=== PATIENT | male | born 1960 | race Caucasian/White ===

== ENCOUNTER 2021-10-03 10:27 | Inpatient (IN) ==
--- NOTE | 2021-10-03 10:50 | XRay Report ---
XR chest 1V portable CLINICAL HISTORY: sob TECHNIQUE: Single frontal radiograph of the chest was obtained. Comparison: Comparison is made to chest one view 07/24/2012 FINDINGS: No lines and tubes are seen. The cardiomediastinal silhouette is normal. There is prominence and ceph alization of the vasculature with Alejandro B lines seen. No evidence of pleural effusion or pneumothora x. IMPRESSION: Moderate pulmonary edema. ACT 112: Negative or not required by law. Electronically signed by: Simba Red M.D. 10/03/2021 10:48 AM
[2021-10-03] MEDS ORDERED: DEXAMETHASONE SOD INJ 4 MG/ML VIAL IV STA (10:52)
[2021-10-03 11:17] LABS: Influenza A virus by PCR Negative (Neg); Influenza B virus by PCR Negative (Neg); RSV by PCR Negative (Neg); SARS CoV2 RNA(COVID-19) InHosp NEGATIVE (Negative)
[2021-10-03 11:29] LABS: Hematocrit (blood only) 43.1 % (42-52); Hemoglobin 14.2 g/dL (14.0-18.0); Mean Corpuscular Hemoglobin 31.5 pg (25-34); Mean Corpuscular Hgb Conc 32.9 g/dL (32-36); Mean Corpuscular Volume 95.6 fL (80-100); Mean Platelet Volume 9.7 fL (7.4-10.4); Platelet Count 308 K/uL (130-400); RDW Coefficient of Variation 12.9 % (11.5-14.5); RDW Standard Deviation 44.8 fL (36.4-46.3); Red Blood Count 4.51 M/uL (4.7-6.1); White Blood Count 10.31 K/uL (4.8-10.8)
[2021-10-03 11:35] LABS: Base Excess VBG 1.4 mEq/L; HCO3 VBG 26 mmol/L; PCO2 VBG 42 mmHg (38-50); PO2 VBG 26 mmHg; pH VBG 7.41 (7.36-7.41)
[2021-10-03 11:37] LABS: Oxygen Saturation VBG < 60.0 %
[2021-10-03 11:41] LABS: Partial Thromboplastin Ratio 1.2; Partial Thromboplastin Time 30.8 Seconds (21.0-31.0); Prothrombin Time 10.6 Seconds (9.0-12.0)
[2021-10-03 11:47] LABS: Alanine Aminotransferase 14 (12-78); Albumin Level 3.9 gm/dl (3.4-5.0); Aspartate Aminotransferase 13 U/L (15-37); BUN Creatinine Ratio 12.7 (10-20); Blood Urea Nitrogen 11 mg/dl (7-18); Calcium 9.1 mg/dl (8.5-10.1); Carbon Dioxide 25 mmol/L (21-32); Chloride 104 mmol/L (98-107); Est GFR (African American) 108.5 ml/min; Est GFR (Non-African American) 93.6 ml/min; Glucose 101 mg/dl (70-99); Magnesium 1.9 mg/dl (1.8-2.4); Potassium 3.9 mmol/L (3.5-5.1); Sodium 136 mmol/L (136-145)
[2021-10-03 11:50] LABS: Basophils # (auto) 0.04 K/uL (0-0.2); Basophils % (auto) 0.4 %; Immature Granulocytes # (auto) 0.01 K/uL (0.00-0.02); Immature Granulocytes % (auto) 0.1 %; Lymphocytes # (auto) 1.18 K/uL (1.2-3.4); Lymphocytes % (auto) 11.4 %; Monocytes # (auto) 1.43 K/uL (0.11-0.59); Monocytes % (auto) 13.9 %; Neutrophils # (auto) 7.65 K/uL (1.4-6.5); Neutrophils % (auto) 74.2 %
[2021-10-03 11:52] LABS: Albumin Globulin Ratio 0.9 (0.9-2); Alkaline Phosphatase 96 U/L (45-117); Bilirubin,Total 0.3 mg/dl (0.2-1); Globulin 4.3 gm/dl (2.5-4.0); Total Protein 8.2 gm/dl (6.4-8.2); Troponin I < 0.015 ng/ml (0-0.045)
[2021-10-03] MEDS ORDERED: OPTIRAY 320 125ml IV ONE (12:36)
[2021-10-03] MEDS ORDERED: FUROSEMIDE 40 MG/4 ML VIAL IV ONE (13:00)
--- NOTE | 2021-10-03 13:00 | CT Scan Report ---
CT angio chest PE protocol CLINICAL HISTORY: ro PE dyspnea, cough TECHNIQUE: Multidetector row helical CT of the chest was performed. Coronal and sagittal reformations were obtained. Coronal and sagittal MIPS were obtained from the axial data set and were submitted fo r review. Automated dose lowering techniques and/or adjustment according to patient size were utiliz ed for this exam. Comparison: None available at the time of this dictation. FINDINGS: Lungs and pleura: Tree in bud nodularity is seen most prominent in the right perihilar region. Heart and pericardium: Heart size is normal. No pericardial effusion. Vessels: No evidence of pulmonary embolism. Mediastinum and camelia: Subcentimeter lymph nodes are seen. Chest wall and lower neck: Unremarkable. Abdomen: A hepatic cyst is seen. Bones: Degenerative changes in the thoracic spine. IMPRESSION: 1. No evidence of pulmonary embolism. 2. Tree in bud nodularity most prominent in the right upper lobe may represent infectious/inflammato ry etiology. ACT 112: Negative or not required by law. Electronically signed by: Simba Red M.D. 10/03/2021 12:59 PM
[2021-10-03] MEDS ORDERED: AZITHROMYCIN 250 MG TAB PO ONE (13:10)
[2021-10-03] MEDS ORDERED: cefTRIAXone SODIUM 1,000 MG/50 ML BAG IV STA (13:10)
[2021-10-03 13:43] LABS: Appearance Urine Clear (Clear); Bacteria Urine Automated Negative (Negative); Bilirubin Urine Negative (Negative); Blood Urine Trace (Negative); Cast Urine Automated 0 /lpf (0-5); Color Urine Yellow; Epithelial Cell Urine Auto 0-5 /lpf (0-5); Glucose Urine UA Negative (Negative); Ketones Urine Negative (Negative); Leukocyte Esterase Urine Negative (Negative); Nitrite Urine Negative (Negative); Protein Urine Negative (Negative); RBC Urine Automated 0-4 /hpf (0-4); Specific Gravity Urine 1.038 (1.000-1.030); Urobilinogen Urine Negative (Negative); WBC Urine Automated 0 /hpf (0-5); pH Urine 5.5 (4.5-7.5)
--- NOTE | 2021-10-03 13:51 | Emergency Department Note ---
History of Present Illness General Chief Complaint: Shortness of Breath/Dyspnea Stated Complaint: trouble breathing Time Seen by Provider: 10/03/21 10:49 History of Present Illness Provider Complaint: shortness of breath Onset (ago): week(s) (1) Severity: moderate Consistency/Duration: + intermittent Maximum Pain Intensity: 6 Relieved By: + nothing Exacerbated By: + exertion and + coughing Context: + recent illness Associated symptoms: + cough, + sputum production and + chest congestion; no chest pain, no fever, no wheezing, no lower extremity pain, no paresthesias, no hemoptysis, no syncope, no abdominal pain or no lightheadedness HPI Narrative: Patient vaccinated against COVID-19. Related Data Home oxygen amount: none Home Medications Medication Instructions Recorded Confirmed Type amoxicillin 875 mg-potassium 1 tab PO DAILY 10/03/21 10/03/21 History clavulanate 125 mg tablet Allergies Allergy/AdvReac Type Severity Reaction Status Date / Time No Known Allergies Allergy Unknown NONE Verified 08/19/09 04:24 Past Med/Surg History Medical History No pertinent family history No pertinent past medical history Surgical History No pertinent past surgical history Social History Smoking Status: Current every day smoker Tobacco Type: Cigarettes Preferred Language: Sinhala Feels Safe at Home: Yes Review of Systems A total of 10 systems reviewed and were otherwise negative Physical Exam Vital Signs: Vital Signs - 24 hr 10/03/21 10:27 10/03/21 10:28 10/03/21 10:53 Temperature 37.4 C Temperature Source Temporal Artery Sc an Pulse Rate 113 H Pulse Rate from Sp O2 Sensor Respiratory Rate 22 20 Respiratory Effort / Characteristics Labored Blood Pressure 153/81 H Blood Pressure Mechelle n 105 Pulse Oximetry 89 L 96 Oxygen Delivery Me thod Nasal Cannula Room Air Nasal Cannula Oxygen Flow Rate 3 3 Sepsis Recent Feve r Within 48 Hours No Sepsis New/Unexpla ined Change in Men cezar Status No Sepsis Action Take n by Nursing No Action Required Pulse Oximetry Pos t Tiitration 98 10/03/21 10:58 10/03/21 11:00 10/03/21 11:10 Temperature Temperature Source Pulse Rate 103 H 102 H 94 H Pulse Rate from Sp O2 Sensor 101 H 105 H 93 H Respiratory Rate 22 25 H 28 H Respiratory Effort / Characteristics Blood Pressure 147/86 H 155/88 H Blood Pressure Mechelle n 106 110 Pulse Oximetry 93 93 93 Oxygen Delivery Me thod Oxygen Flow Rate Sepsis Recent Feve r Within 48 Hours Sepsis New/Unexpla ined Change in Men cezar Status Sepsis Action Take n by Nursing Pulse Oximetry Pos t Tiitration 10/03/21 11:20 10/03/21 11:30 10/03/21 11:40 Temperature Temperature Source Pulse Rate 109 H 103 H 108 H Pulse Rate from Sp O2 Sensor 110 H 103 H Respiratory Rate 27 H 28 H 24 Respiratory Effort / Characteristics Blood Pressure Blood Pressure Mechelle n Pulse Oximetry 92 94 Oxygen Delivery Me thod Oxygen Flow Rate Sepsis Recent Feve r Within 48 Hours Sepsis New/Unexpla ined Change in Men cezar Status Sepsis Action Take n by Nursing Pulse Oximetry Pos t Tiitration 10/03/21 11:50 10/03/21 12:00 10/03/21 12:10 Temperature Temperature Source Pulse Rate 103 H 96 H 99 H Pulse Rate from Sp O2 Sensor 100 H Respiratory Rate 23 28 H 29 H Respiratory Effort / Characteristics Blood Pressure Blood Pressure Mechelle n Pulse Oximetry 94 Oxygen Delivery Me thod Oxygen Flow Rate Sepsis Recent Feve r Within 48 Hours Sepsis New/Unexpla ined Change in Men cezar Status Sepsis Action Take n by Nursing Pulse Oximetry Pos t Tiitration 10/03/21 12:20 10/03/21 12:30 10/03/21 12:48 Temperature Temperature Source Pulse Rate 97 H 88 103 H Pulse Rate from Sp O2 Sensor 97 H 88 100 H Respiratory Rate 23 27 H 27 H Respiratory Effort / Characteristics Blood Pressure 137/84 Blood Pressure Mechelle n 101 Pulse Oximetry 94 94 91 Oxygen Delivery Me thod Oxygen Flow Rate Sepsis Recent Feve r Within 48 Hours Sepsis New/Unexpla ined Change in Men cezar Status Sepsis Action Take n by Nursing Pulse Oximetry Pos t Tiitration 10/03/21 12:50 10/03/21 13:00 Temperature Temperature Source Pulse Rate 100 H 96 H Pulse Rate from Sp O2 Sensor 99 H 96 H Respiratory Rate 28 H 27 H Respiratory Effort / Characteristics Blood Pressure 140/83 Blood Pressure Mechelle n 102 Pulse Oximetry 92 92 Oxygen Delivery Me thod Oxygen Flow Rate Sepsis Recent Feve r Within 48 Hours Sepsis New/Unexpla ined Change in Men cezar Status Sepsis Action Take n by Nursing Pulse Oximetry Pos t Tiitration Physical Exam: Physical Exam GENERAL: He is oriented to person, place, and time. He appears well-developed and well-nourished. He does not appear distressed. HENT: Exam performed. - Head: Normocephalic and atraumatic. - Right Ear: External ear normal. No mastoid tenderness. - Left Ear: External ear normal. No mastoid tenderness. - Mouth/Throat: The oropharynx is clear and moist. No trismus in the jaw. No dental abscesses or uvula swelling. No oropharyngeal exudate or tonsillar abscesses. EYES: Conjunctivae and EOM are normal. Pupils are equal, round, and reactive to light. Right eye exhibits no discharge. Left eye exhibits no discharge. No scleral icterus. NECK: Normal range of motion. Neck supple. No JVD present. No spinous process tenderness present. No carotid bruit present. No rigidity. No tracheal deviation and normal range of motion present. No Brudzinski's sign and no Kernig's sign noted. CV: Tachycardic rate, regular rhythm, normal heart sounds and intact distal pulses. There is no peripheral edema. Palpable radial pulses bue. PULM/CHEST: Rhonchi bilaterally. ABD: The abdomen is soft. Bowel sounds are normal. He has no distension. No mass is present. There is no tenderness. There is no rebound, no guarding, no Daniels's sign and no tenderness at McBurney's point. Rovsig negative. MUSC/SKEL: Normal range of motion. There is no peripheral edema, tenderness or deformity. LYMPH: No cervical adenopathy. NEURO: He is alert and oriented to person, place, and time. He has normal strength. No cranial nerve deficit or sensory deficit. Coordination and gait normal. GCS eye subscore is 4. GCS verbal subscore is 5. GCS motor subscore is 6. Cerebellar tests wnl. SKIN: Skin is warm and dry. He is not diaphoretic. PSYCH: He has a normal mood and affect. Behavior is normal. Judgment and thought content normal. Course Course 1049: The patient was evaluated in room B2. A complete history and physical exam was performed Cardiac monitoring: An order was placed for continuous cardiac monitoring. The monitor shows a rate of 105 with sinus tachycardia rhythm Patient was found to be hypoxic on room air. Supplemental oxygen was applied via nasal cannula which improved patient's oxygen saturation. 1345: Vital signs stable on supplemental oxygen. Labs are within normal limits. Covid is negative. Chest x-ray shows pulmonary edema, B-lines. For this beth son Lasix 40 mg IV push was ordered for the patient additionally. CTA was showed a possible infiltrate and thus the patient was treated for pneumonia with IV Rocephin and azithromycin. [facility] Administered Medications Discontinued Medications Azithromycin (Azithromycin 250 Mg Tab) 500 mg PO NOW ONE Stop: 10/03/21 13:11 Last Admin: 10/03/21 13:24 Dose: 500 mg Documented by: [id number] Dexamethasone (Dexamethasone Sod Inj 4 Mg/Ml Vial) 6 mg IV NOW STA Stop: 10/03/21 10:53 Last Admin: 10/03/21 12:06 Dose: 6 mg Documented by: [id number] Furosemide (Furosemide 40 Mg/4 Ml Vial) 40 mg IV ONE ONE Stop: 10/03/21 13:01 Last Admin: 10/03/21 13:08 Dose: 40 mg Documented by: [id number] Ceftriaxone Sodium (Rocephin) 1,000 mg in 50 mls @ 100 mls/hr IV NOW STA Stop: 10/03/21 13:39 Last Admin: 10/03/21 13:24 Dose: 100 mls/hr Documented by: [id number] Ioversol (Optiray 320 125ml) 119 ml IV ONCE ONE Stop: 10/03/21 12:37 Last Admin: 10/03/21 12:38 Dose: 119 ml Documented by: [id number] Medical Decision Making Laboratory Data Result diagrams: 10/03/21 11:20 10/03/21 11:20 Lab Results 10/03/21 10/03/21 10/03/21 Range/Units 10:33 11:20 11:20 WBC (4.8-10.8) K/uL RBC (4.7-6.1) M/uL Hgb (14.0-18.0) g/dL Hct (42-52) % MCV (80-100) fL MCH (25-34) pg MCHC (32-36) g/dL RDW Std Deviation (36.4-46.3) fL RDW Coeff of Alysa (11.5-14.5) % Plt Count (130-400) K/uL MPV (7.4-10.4) fL Immature Gran % (Auto) % Neut % (Auto) % Lymph % (Auto) % [place] % (Auto) % Eos % (Auto) % Baso % (Auto) % Neut # (Auto) (1.4-6.5) K/uL Lymph # (Auto) (1.2-3.4) K/uL [place] # (Auto) (0.11-0.59) K/uL Eos # (Auto) (0-0.5) K/uL Baso # (Auto) (0-0.2) K/uL Immature Gran # (Auto) (0.00-0.02) K/uL PT (9.0-12.0) Seconds INR (0.9-1.1) APTT (21.0-31.0) Seconds PTT Ratio VBG pH (7.36-7.41) VBG pCO2 (38-50) mmHg VBG pO2 mmHg VBG HCO3 mmol/L VBG O2 Saturation % VBG Base Excess mEq/L Barometric Pressure mm/Hg Sodium 136 (136-145) mmol/L Potassium 3.9 (3.5-5.1) mmol/L Chloride 104 (98-107) mmol/L Carbon Dioxide 25 (21-32) mmol/L Anion Gap 7.0 (3-11) BUN 11 (7-18) mg/dl Creatinine 0.89 (0.6-1.4) mg/dl Est Cr Clr Drug Dosing 83.0 ml/min Est GFR ( Amer) 108.5 ml/min Est GFR (Non-Af Amer) 93.6 ml/min BUN/Creatinine Ratio 12.7 (10-20) Glucose 101 H (70-99) mg/dl Lactate (0.4-2.0) mmol/L Calcium 9.1 (8.5-10.1) mg/dl Magnesium 1.9 (1.8-2.4) mg/dl Total Bilirubin 0.3 (0.2-1) mg/dl AST 13 L (15-37) U/L ALT 14 (12-78) Alkaline Phosphatase 96 (45-117) U/L Troponin I < 0.015 (0-0.045) ng/ml Total Protein 8.2 (6.4-8.2) gm/dl Albumin 3.9 (3.4-5.0) gm/dl Globulin 4.3 H (2.5-4.0) gm/dl Albumin/Globulin Ratio 0.9 (0.9-2) Procalcitonin 0.06 (0-0.5) ng/ml Urine Color Urine Appearance (Clear) Urine pH (4.5-7.5) Ur Specific [place] (1.000-1.030) Urine Protein (Negative) Urine Glucose (UA) (Negative) Urine Ketones (Negative) Urine Blood (Negative) Urine Nitrite (Negative) Urine Bilirubin (Negative) Urine Urobilinogen (Negative) Ur Leukocyte Esterase (Negative) Urine WBC (Auto) (0-5) /hpf Urine RBC (Auto) (0-4) /hpf U Hyaline Cast (Auto) (0-5) /lpf U Epithel Cells (Auto) (0-5) /lpf Urine Bacteria (Auto) (Negative) SARS-CoV-2 (PCR) NEGATIVE (Negative) Influenza Type A (PCR) Negative (Neg) Influenza Type B (PCR) Negative (Neg) RSV (RT-PCR) Negative (Neg) 10/03/21 10/03/21 10/03/21 Range/Units 11:20 11:20 11:20 WBC 10.31 (4.8-10.8) K/uL RBC 4.51 L (4.7-6.1) M/uL Hgb 14.2 (14.0-18.0) g/dL Hct 43.1 (42-52) % MCV 95.6 (80-100) fL MCH 31.5 (25-34) pg MCHC 32.9 (32-36) g/dL RDW Std Deviation 44.8 (36.4-46.3) fL RDW Coeff of Alysa 12.9 (11.5-14.5) % Plt Count 308 (130-400) K/uL MPV 9.7 (7.4-10.4) fL Immature Gran % (Auto) 0.1 % Neut % (Auto) 74.2 % Lymph % (Auto) 11.4 % [place] % (Auto) 13.9 % Eos % (Auto) 0.0 % Baso % (Auto) 0.4 % Neut # (Auto) 7.65 H (1.4-6.5) K/uL Lymph # (Auto) 1.18 L (1.2-3.4) K/uL [place] # (Auto) 1.43 H (0.11-0.59) K/uL Eos # (Auto) 0.00 (0-0.5) K/uL Baso # (Auto) 0.04 (0-0.2) K/uL Immature Gran # (Auto) 0.01 (0.00-0.02) K/uL PT 10.6 (9.0-12.0) Seconds INR 1.0 (0.9-1.1) APTT 30.8 (21.0-31.0) Seconds PTT Ratio 1.2 VBG pH 7.41 (7.36-7.41) VBG pCO2 42 (38-50) mmHg VBG pO2 26 mmHg VBG HCO3 26 mmol/L VBG O2 Saturation < 60.0 % VBG Base Excess 1.4 mEq/L Barometric Pressure 719.8 mm/Hg Sodium (136-145) mmol/L Potassium (3.5-5.1) mmol/L Chloride (98-107) mmol/L Carbon Dioxide (21-32) mmol/L Anion Gap (3-11) BUN (7-18) mg/dl Creatinine (0.6-1.4) mg/dl Est Cr Clr Drug Dosing ml/min Est GFR ( Amer) ml/min Est GFR (Non-Af Amer) ml/min BUN/Creatinine Ratio (10-20) Glucose (70-99) mg/dl Lactate (0.4-2.0) mmol/L Calcium (8.5-10.1) mg/dl Magnesium (1.8-2.4) mg/dl Total Bilirubin (0.2-1) mg/dl AST (15-37) U/L ALT (12-78) Alkaline Phosphatase (45-117) U/L Troponin I (0-0.045) ng/ml Total Protein (6.4-8.2) gm/dl Albumin (3.4-5.0) gm/dl Globulin (2.5-4.0) gm/dl Albumin/Globulin Ratio (0.9-2) Procalcitonin (0-0.5) ng/ml Urine Color Urine Appearance (Clear) Urine pH (4.5-7.5) Ur Specific [place] (1.000-1.030) Urine Protein (Negative) Urine Glucose (UA) (Negative) Urine Ketones (Negative) Urine Blood (Negative) Urine Nitrite (Negative) Urine Bilirubin (Negative) Urine Urobilinogen (Negative) Ur Leukocyte Esterase (Negative) Urine WBC (Auto) (0-5) /hpf Urine RBC (Auto) (0-4) /hpf U Hyaline Cast (Auto) (0-5) /lpf U Epithel Cells (Auto) (0-5) /lpf Urine Bacteria (Auto) (Negative) SARS-CoV-2 (PCR) (Negative) Influenza Type A (PCR) (Neg) Influenza Type B (PCR) (Neg) RSV (RT-PCR) (Neg) 10/03/21 10/03/21 Range/Units 11:20 Unknown WBC (4.8-10.8) K/uL RBC (4.7-6.1) M/uL Hgb (14.0-18.0) g/dL Hct (42-52) % MCV (80-100) fL MCH (25-34) pg MCHC (32-36) g/dL RDW Std Deviation (36.4-46.3) fL RDW Coeff of Alysa (11.5-14.5) % Plt Count (130-400) K/uL MPV (7.4-10.4) fL Immature Gran % (Auto) % Neut % (Auto) % Lymph % (Auto) % [place] % (Auto) % Eos % (Auto) % Baso % (Auto) % Neut # (Auto) (1.4-6.5) K/uL Lymph # (Auto) (1.2-3.4) K/uL [place] # (Auto) (0.11-0.59) K/uL Eos # (Auto) (0-0.5) K/uL Baso # (Auto) (0-0.2) K/uL Immature Gran # (Auto) (0.00-0.02) K/uL PT (9.0-12.0) Seconds INR (0.9-1.1) APTT (21.0-31.0) Seconds PTT Ratio VBG pH (7.36-7.41) VBG pCO2 (38-50) mmHg VBG pO2 mmHg VBG HCO3 mmol/L VBG O2 Saturation % VBG Base Excess mEq/L Barometric Pressure mm/Hg Sodium (136-145) mmol/L Potassium (3.5-5.1) mmol/L Chloride (98-107) mmol/L Carbon Dioxide (21-32) mmol/L Anion Gap (3-11) BUN (7-18) mg/dl Creatinine (0.6-1.4) mg/dl Est Cr Clr Drug Dosing ml/min Est GFR ( Amer) ml/min Est GFR (Non-Af Amer) ml/min BUN/Creatinine Ratio (10-20) Glucose (70-99) mg/dl Lactate 0.9 (0.4-2.0) mmol/L Calcium (8.5-10.1) mg/dl Magnesium (1.8-2.4) mg/dl Total Bilirubin (0.2-1) mg/dl AST (15-37) U/L ALT (12-78) Alkaline Phosphatase (45-117) U/L Troponin I (0-0.045) ng/ml Total Protein (6.4-8.2) gm/dl Albumin (3.4-5.0) gm/dl Globulin (2.5-4.0) gm/dl Albumin/Globulin Ratio (0.9-2) Procalcitonin (0-0.5) ng/ml Urine Color Yellow Urine Appearance Clear (Clear) Urine pH 5.5 (4.5-7.5) Ur Specific [place] 1.038 H (1.000-1.030) Urine Protein Negative (Negative) Urine Glucose (UA) Negative (Negative) Urine Ketones Negative (Negative) Urine Blood Trace H (Negative) Urine Nitrite Negative (Negative) Urine Bilirubin Negative (Negative) Urine Urobilinogen Negative (Negative) Ur Leukocyte Esterase Negative (Negative) Urine WBC (Auto) 0 (0-5) /hpf Urine RBC (Auto) 0-4 (0-4) /hpf U Hyaline Cast (Auto) 0 (0-5) /lpf U Epithel Cells (Auto) 0-5 (0-5) /lpf Urine Bacteria (Auto) Negative (Negative) SARS-CoV-2 (PCR) (Negative) Influenza Type A (PCR) (Neg) Influenza Type B (PCR) (Neg) RSV (RT-PCR) (Neg) Imaging Data Radiologist's Impression: Chest X-Ray 10/03/21 10:34 XR chest 1V portable CLINICAL HISTORY: sob TECHNIQUE: Single frontal radiograph of the chest was obtained. Comparison: Comparison is made to chest one view 07/24/2012 FINDINGS: No lines and tubes are seen. The cardiomediastinal silhouette is normal. There is prominence and cephalization of the vasculature with Alejandro B lines seen. No evidence of pleural effusion or pneumothorax. IMPRESSION: Moderate pulmonary edema. ACT 112: Negative or not required by law. Electronically signed by: Simba Red M.D. 10/03/2021 10:48 AM Chest CTA 10/03/21 10:52 CT angio chest PE protocol CLINICAL HISTORY: ro PE dyspnea, cough TECHNIQUE: Multidetector row helical CT of the chest was performed. Coronal and sagittal reformations were obtained. Coronal and sagittal MIPS were obtained from the axial data set and were submitted for review. Automated dose lowering techniques and/or adjustment according to patient size were utilized for this exam. Comparison: None available at the time of this dictation. FINDINGS: Lungs and pleura: Tree in bud nodularity is seen most prominent in the right perihilar region. Heart and pericardium: Heart size is normal. No pericardial effusion. Vessels: No evidence of pulmonary embolism. Mediastinum and camelia: Subcentimeter lymph nodes are seen. Chest wall and lower neck: Unremarkable. Abdomen: A hepatic cyst is seen. Bones: Degenerative changes in the thoracic spine. IMPRESSION: 1. No evidence of pulmonary embolism. 2. Tree in bud nodularity most prominent in the right upper lobe may represent infectious/inflammatory etiology. ACT 112: Negative or not required by law. Electronically signed by: Simba Red M.D. 10/03/2021 12:59 PM ECG Data Interpretation: Sinus tachycardia with rate of 103. MA QRS and QTc intervals are within normal limits. No salvation ST depression. There are peaked T waves in leads V2 V4. [facility] Narrative 1049: The patient was evaluated in room B2. A complete history and physical exam was performed Cardiac monitoring: An order was placed for continuous cardiac monitoring. The monitor shows a rate of 105 with sinus tachycardia rhythm Patient was found to be hypoxic on room air. Supplemental oxygen was applied via nasal cannula which improved patient's oxygen saturation. 1345: Vital signs stable on supplemental oxygen. Labs are within normal limits. Covid is negative. Chest x-ray shows pulmonary edema, B-lines. For this reason Lasix 40 mg IV push was ordered for the patient additionally. CTA was showed a possible infiltrate and thus the patient was treated for pneumonia with IV Rocephin and azithromycin. Patient be admitted to the [facility] team Dr. Benoit notified Impression & Plan Hypoxia, Community acquired pneumonia Critical Care Time Critical Care Time: Yes Total Critical Care Time: 59 I have personally spent greater than 59 minutes of critical care time in the direct management of this patient. This includes bedside care, interpretation of diagnostic studies, and testing, discussion with consultants, patient, and family members, and other required patient management activities. This 59 minutes is in excess of all separately billable procedures. Discharge Plan Visit Data Chief Complaint: Shortness of Breath/Dyspnea Stated Complaint: trouble breathing Discharge Problem: Hypoxia, Community acquired pneumonia Patient Disposition: Admitted As Inpatient Forms Stand Alone Forms: My [facility] Prescriptions Prescriptions: No Action amoxicillin-pot clavulanate 875-125 mg tablet 1 tab PO DAILY RF: 0 Referrals Referrals: Nina Mendez MD [Primary Care Provider] -
--- NOTE | 2021-10-03 15:05 | History & Physical Report ---
Date of Service October 03, 2021 Assessment & Plan (1) Acute respiratory failure with hypoxia: (2) Community acquired pneumonia: Plan: Patient reports history of recurrent sinusitis Most recently he was treated with Augmentin (started 5 days ago) Previously on Levaquin in August About 2 days ago, he developed more cough, chest tightness, and difficulty breathing in the ED found hypoxic, currently on 3 L of supplemental O2, satting 91% Chest x-ray showed some pulmonary edema and so he received Lasix in ED CTA negative for PE, however shows right upper lobe pneumonia Troponin negative Procalcitonin negative COVID-19 negative, influenza negative, RSV negative Blood culture pending proBNP normal In the ED received ceftriaxone and azithromycin, and dexamethasone We will continue with ceftriaxone and doxycycline Add guaifenesin, flutter valve Obtain sputum culture Continue to closely monitor Patient also may have underlying COPD, as he has significant smoking history We will provide nicotine patch Hypertension Patient takes atenolol 12.5 mg daily Hyperlipidemia History of elevated LDL, managed by diet DVT prophylaxis Lovenox CODE STATUS full History of Present Illness Chief Complaint: Shortness of breath Primary Care Provider: Nina Mendez MD 61-year-old male, with history of recurrent sinusitis, hyperlipidemia, hypertension, who presents with increased cough, difficulty breathing, and found hypoxic in the ED. Patient was seen by his primary care provider about a week ago, at that time he was prescribed Augmentin for his recurrent sinusitis. Patient reports having issues with sinuses for several years, previously he was treated in July and August with antibiotics as well, per records he was on Levaquin in August. Says he had significant nasal drainage, green-colored, and therefore was seen by his PCP on Tuesday. He thought he was getting better on Augmentin however yesterday he developed a lot of chest tightness, more cough and sputum production with cough. Denies significant fevers or chills. Also denies abdominal pain nausea or vomiting. He has chronic headache, for which he takes Excedrin. For hypertension he takes 12.5 mg of atenolol daily. Works as a garage construction equipment mechanic, and says that he is very active. He is also a daily smoker, about a pack a day, for past 35 years. Says he smoked last time yesterday. In the ED he was found hypoxic, and currently is on 3 L of nasal cannula, satting 91%. He is able to talk in full sentences, and reports that he is feeling better now. In the ED he received ceftriaxone, azithromycin, dexamethasone, and also IV Lasix as chest x-ray suggested some pulmonary edema. CTA negative for PE, however concerning for right upper lobe pneumonia. Allergies Allergy/AdvReac Type Severity Reaction Status Date / Time No Known Allergies Allergy Unknown NONE Verified 08/19/09 04:24 Home Medications Medication Instructions Recorded Confirmed Type amoxicillin 875 mg-potassium 1 tab PO DAILY 10/03/21 10/03/21 History clavulanate 125 mg tablet Past Med/Surg History Medical History (Updated 10/03/21 @ 16:13 by Fabian Benoit MD) Hyperlipidemia Hypertension No pertinent family history Surgical History (Updated 10/03/21 @ 16:13 by Fabian Benoit MD) Hx of appendectomy Hx of hernia repair Social History Smoking Status: Current every day smoker Tobacco Type: Cigarettes Preferred Language: Georgian Feels Safe at Home: Yes Review of Systems Constitutional: no fever and no chills Eyes: no problem reported Ear, Nose, Mouth, Throat: + nasal discharge Respiratory: + cough, + chest congestion, + change in sputum and + dyspnea Cardiovascular: no chest pain Gastrointestinal: + nausea; no abdominal pain and no vomiting Genitourinary: no problem reported Musculoskeletal: no problem reported Integumentary: no problem reported Neurologic: no problem reported Psychiatric: no problem reported Endocrine: no problem reported Hematologic / Lymphatic: no problem reported Allergy / Immunological: no problem reported Physical Exam Constitutional: WD/WN, vitals as above Eyes: PERRL, conjunctivae normal, anicteric sclerae ENMT: external ear and nose normal, oropharynx normal Neck: trachea midline, no thyromegaly Respiratory: normal respiratory effort and + cough Auscultation: + crackles (minimal) and + rhonchi (diffuse); no wheezes Cardiovascular: Rate/Rhythm: + tachycardic (low 100s) Heart Sounds: no mur mur Extremities: no edema Chest (Breasts): Chest: normal inspection of chest Gastrointestinal (Abdomen): normal bowel sounds, soft, nontender, no hepatosplenomegaly Musculoskeletal: no cyanosis or clubbing, extremities motor strength 5/5 Head/Neck/Chest: normocephalic, head atraumatic and neck supple Skin: no rashes, warm and dry Neurologic: PERRL, EOMI, accommodation nl, no face palsy, no dysarthria Psychiatric: A+Ox3, euthymic affect Genitourinary: no CVA tenderness Lymphatic: no lymphedema Results & Data Results & [facility]) Vital Signs (Past 12 Hours) Vital Signs Temp Pulse Resp BP Pulse Ox 10/03/21 13:00 96 H 27 H 140/83 92 10/03/21 12:50 100 H 28 H 92 10/03/21 12:48 103 H 27 H 91 10/03/21 12:30 88 27 H 137/84 94 10/03/21 12:20 97 H 23 94 10/03/21 12:10 99 H 29 H 94 10/03/21 12:00 96 H 28 H 10/03/21 11:50 103 H 23 10/03/21 11:40 108 H 24 10/03/21 11:30 103 H 28 H 94 10/03/21 11:20 109 H 27 H 92 10/03/21 11:10 94 H 28 H 93 10/03/21 11:00 102 H 25 H 155/88 H 93 10/03/21 10:58 103 H 22 147/86 H 93 10/03/21 10:53 20 96 10/03/21 10:28 37.4 C 113 H 22 153/81 H 89 L Laboratory Results 10/03/21 10/03/21 10/03/21 Range/Units Unknown 11:20 11:20 WBC (4.8-10.8) K/uL RBC (4.7-6.1) M/uL Hgb (14.0-18.0) g/dL Hct (42-52) % MCV (80-100) fL MCH (25-34) pg MCHC (32-36) g/dL RDW Std Deviation (36.4-46.3) fL RDW Coeff of Alysa (11.5-14.5) % Plt Count (130-400) K/uL MPV (7.4-10.4) fL Immature Gran % (Auto) % Neut % (Auto) % Lymph % (Auto) % [place] % (Auto) % Eos % (Auto) % Baso % (Auto) % Neut # (Auto) (1.4-6.5) K/uL Lymph # (Auto) (1.2-3.4) K/uL [place] # (Auto) (0.11-0.59) K/uL Eos # (Auto) (0-0.5) K/uL Baso # (Auto) (0-0.2) K/uL Immature Gran # (Auto) (0.00-0.02) K/uL PT (9.0-12.0) Seconds INR (0.9-1.1) APTT (21.0-31.0) Seconds PTT Ratio VBG pH (7.36-7.41) VBG pCO2 (38-50) mmHg VBG pO2 mmHg VBG HCO3 mmol/L VBG O2 Saturation % VBG Base Excess mEq/L Barometric Pressure mm/Hg Sodium (136-145) mmol/L Potassium (3.5-5.1) mmol/L Chloride (98-107) mmol/L Carbon Dioxide (21-32) mmol/L Anion Gap (3-11) BUN (7-18) mg/dl Creatinine (0.6-1.4) mg/dl Est Cr Clr Drug Dosing ml/min Est GFR ( Amer) ml/min Est GFR (Non-Af Amer) ml/min BUN/Creatinine Ratio (10-20) Glucose (70-99) mg/dl Lactate 0.9 (0.4-2.0) mmol/L Calcium (8.5-10.1) mg/dl Magnesium (1.8-2.4) mg/dl Total Bilirubin (0.2-1) mg/dl AST (15-37) U/L ALT (12-78) Alkaline Phosphatase (45-117) U/L Troponin I (0-0.045) ng/ml NT-Pro-B Natriuret Pep 101 (0-900) pg/ml Total Protein (6.4-8.2) gm/dl Albumin (3.4-5.0) gm/dl Globulin (2.5-4.0) gm/dl Albumin/Globulin Ratio (0.9-2) Procalcitonin (0-0.5) ng/ml Urine Color Yellow Urine Appearance Clear (Clear) Urine pH 5.5 (4.5-7.5) Ur Specific Reynolds 1.038 H (1.000-1.030) Urine Protein Negative (Negative) Urine Glucose (UA) Negative (Negative) Urine Ketones Negative (Negative) Urine Blood Trace H (Negative) Urine Nitrite Negative (Negative) Urine Bilirubin Negative (Negative) Urine Urobilinogen Negative (Negative) Ur Leukocyte Esterase Negative (Negative) Urine WBC (Auto) 0 (0-5) /hpf Urine RBC (Auto) 0-4 (0-4) /hpf U Hyaline Cast (Auto) 0 (0-5) /lpf U Epithel Cells (Auto) 0-5 (0-5) /lpf Urine Bacteria (Auto) Negative (Negative) SARS-CoV-2 (PCR) (Negative) Influenza Type A (PCR) (Neg) Influenza Type B (PCR) (Neg) RSV (RT-PCR) (Neg) 10/03/21 10/03/21 10/03/21 Range/Units 11:20 11:20 11:20 WBC 10.31 (4.8-10.8) K/uL RBC 4.51 L (4.7-6.1) M/uL Hgb 14.2 (14.0-18.0) g/dL Hct 43.1 (42-52) % MCV 95.6 (80-100) fL MCH 31.5 (25-34) pg MCHC 32.9 (32-36) g/dL RDW Std Deviation 44.8 (36.4-46.3) fL RDW Coeff of Alysa 12.9 (11.5-14.5) % Plt Count 308 (130-400) K/uL MPV 9.7 (7.4-10.4) fL Immature Gran % (Auto) 0.1 % Neut % (Auto) 74.2 % Lymph % (Auto) 11.4 % [place] % (Auto) 13.9 % Eos % (Auto) 0.0 % Baso % (Auto) 0.4 % Neut # (Auto) 7.65 H (1.4-6.5) K/uL Lymph # (Auto) 1.18 L (1.2-3.4) K/uL [place] # (Auto) 1.43 H (0.11-0.59) K/uL Eos # (Auto) 0.00 (0-0.5) K/uL Baso # (Auto) 0.04 (0-0.2) K/uL Immature Gran # (Auto) 0.01 (0.00-0.02) K/uL PT 10.6 (9.0-12.0) Seconds INR 1.0 (0.9-1.1) APTT 30.8 (21.0-31.0) Seconds PTT Ratio 1.2 VBG pH 7.41 (7.36-7.41) VBG pCO2 42 (38-50) mmHg VBG pO2 26 mmHg VBG HCO3 26 mmol/L VBG O2 Saturation < 60.0 % VBG Base Excess 1.4 mEq/L Barometric Pressure 719.8 mm/Hg Sodium (136-145) mmol/L Potassium (3.5-5.1) mmol/L Chloride (98-107) mmol/L Carbon Dioxide (21-32) mmol/L Anion Gap (3-11) BUN (7-18) mg/dl Creatinine (0.6-1.4) mg/dl Est Cr Clr Drug Dosing ml/min Est GFR ( Amer) ml/min Est GFR (Non-Af Amer) ml/min BUN/Creatinine Ratio (10-20) Glucose (70-99) mg/dl Lactate (0.4-2.0) mmol/L Calcium (8.5-10.1) mg/dl Magnesium (1.8-2.4) mg/dl Total Bilirubin (0.2-1) mg/dl AST (15-37) U/L ALT (12-78) Alkaline Phosphatase (45-117) U/L Troponin I (0-0.045) ng/ml NT-Pro-B Natriuret Pep (0-900) pg/ml Total Protein (6.4-8.2) gm/dl Albumin (3.4-5.0) gm/dl Globulin (2.5-4.0) gm/dl Albumin/Globulin Ratio (0.9-2) Procalcitonin (0-0.5) ng/ml Urine Color Urine Appearance (Clear) Urine pH (4.5-7.5) Ur Specific Reynolds (1.000-1.030) Urine Protein (Negative) Urine Glucose (UA) (Negative) Urine Ketones (Negative) Urine Blood (Negative) Urine Nitrite (Negative) Urine Bilirubin (Negative) Urine Urobilinogen (Negative) Ur Leukocyte Esterase (Negative) Urine WBC (Auto) (0-5) /hpf Urine RBC (Auto) (0-4) /hpf U Hyaline Cast (Auto) (0-5) /lpf U Epithel Cells (Auto) (0-5) /lpf Urine Bacteria (Auto) (Negative) SARS-CoV-2 (PCR) (Negative) Influenza Type A (PCR) (Neg) Influenza Type B (PCR) (Neg) RSV (RT-PCR) (Neg) 10/03/21 10/03/21 10/03/21 Range/Units 11:20 11:20 10:33 WBC (4.8-10.8) K/uL RBC (4.7-6.1) M/uL Hgb (14.0-18.0) g/dL Hct (42-52) % MCV (80-100) fL MCH (25-34) pg MCHC (32-36) g/dL RDW Std Deviation (36.4-46.3) fL RDW Coeff of Alysa (11.5-14.5) % Plt Count (130-400) K/uL MPV (7.4-10.4) fL Immature Gran % (Auto) % Neut % (Auto) % Lymph % (Auto) % [place] % (Auto) % Eos % (Auto) % Baso % (Auto) % Neut # (Auto) (1.4-6.5) K/uL Lymph # (Auto) (1.2-3.4) K/uL [place] # (Auto) (0.11-0.59) K/uL Eos # (Auto) (0-0.5) K/uL Baso # (Auto) (0-0.2) K/uL Immature Gran # (Auto) (0.00-0.02) K/uL PT (9.0-12.0) Seconds INR (0.9-1.1) APTT (21.0-31.0) Seconds PTT Ratio VBG pH (7.36-7.41) VBG pCO2 (38-50) mmHg VBG pO2 mmHg VBG HCO3 mmol/L VBG O2 Saturation % VBG Base Excess mEq/L Barometric Pressure mm/Hg Sodium 136 (136-145) mmol/L Potassium 3.9 (3.5-5.1) mmol/L Chloride 104 (98-107) mmol/L Carbon Dioxide 25 (21-32) mmol/L Anion Gap 7.0 (3-11) BUN 11 (7-18) mg/dl Creatinine 0.89 (0.6-1.4) mg/dl Est Cr Clr Drug Dosing 83.0 ml/min Est GFR ( Amer) 108.5 ml/min Est GFR (Non-Af Amer) 93.6 ml/min BUN/Creatinine Ratio 12.7 (10-20) Glucose 101 H (70-99) mg/dl Lactate (0.4-2.0) mmol/L Calcium 9.1 (8.5-10.1) mg/dl Magnesium 1.9 (1.8-2.4) mg/dl Total Bilirubin 0.3 (0.2-1) mg/dl AST 13 L (15-37) U/L ALT 14 (12-78) Alkaline Phosphatase 96 (45-117) U/L Troponin I < 0.015 (0-0.045) ng/ml NT-Pro-B Natriuret Pep (0-900) pg/ml Total Protein 8.2 (6.4-8.2) gm/dl Albumin 3.9 (3.4-5.0) gm/dl Globulin 4.3 H (2.5-4.0) gm/dl Albumin/Globulin Ratio 0.9 (0.9-2) Procalcitonin 0.06 (0-0.5) ng/ml Urine Color Urine Appearance (Clear) Urine pH (4.5-7.5) Ur Specific [place] (1.000-1.030) Urine Protein (Negative) Urine Glucose (UA) (Negative) Urine Ketones (Negative) Urine Blood (Negative) Urine Nitrite (Negative) Urine Bilirubin (Negative) Urine Urobilinogen (Negative) Ur Leukocyte Esterase (Negative) Urine WBC (Auto) (0-5) /hpf Urine RBC (Auto) (0-4) /hpf U Hyaline Cast (Auto) (0-5) /lpf U Epithel Cells (Auto) (0-5) /lpf Urine Bacteria (Auto) (Negative) SARS-CoV-2 (PCR) NEGATIVE (Negative) Influenza Type A (PCR) Negative (Neg) Influenza Type B (PCR) Negative (Neg) RSV (RT-PCR) Negative (Neg) Diagnostic Findings CTA IMPRESSION: 1. No evidence of pulmonary embolism. 2. Tree in bud nodularity most prominent in the right upper lobe may represent infectious/inflammatory etiology. CXR IMPRESSION: Moderate pulmonary edema. Code Status & VTE Plan VTE Prophylaxis Plan VTE Prophylaxis will be ordered: Yes (1) Community acquired pneumonia Laterality: right Lung location: upper lobe of lung Qualified Code(s): J18.9 - Pneumonia, unspecified organism
[2021-10-03] MEDS ORDERED: guaiFENesin 600 MG TABCR PO SCH (15:20)
[2021-10-03] MEDS ORDERED: ATENOLOL 25 MG TABLET PO ONE (16:00)
[2021-10-03] MEDS ORDERED: SODIUM CHLORIDE 0.65% NA SOLN 45 ML (OCEAN) ONE (16:15)
[2021-10-03] MEDS ORDERED: NICOTINE 7 MG/24 HR TDSY TD ONE (16:15)
[2021-10-03] MEDS: DOXYCYCLINE HYCLATE 100 MG in DEXTROSE 5% 100 ML IV SCH (17:16)
[2021-10-03] MEDS: ACETAMINOPHEN 325 MG TAB PO PRN (21:37)
[2021-10-03] MEDS: SODIUM CHLORIDE 0.65% NA SOLN 45 ML (OCEAN) SCH (21:37)
[2021-10-03] MEDS: guaiFENesin 600 MG TABCR PO SCH (21:38)
[2021-10-03] MEDS: ENOXAPARIN INJ 40 MG/0.4 ML SYR SQ SCH (21:38)
[2021-10-04] MEDS: ACETAMINOPHEN 325 MG TAB PO PRN ×2 (01:46→21:02)
[2021-10-04] MEDS ORDERED: KETOROLAC 30 MG/ML VIAL IV ONE (03:32)
[2021-10-04] MEDS: DOXYCYCLINE HYCLATE 100 MG in DEXTROSE 5% 100 ML IV SCH ×2 (06:03→18:03)
[2021-10-04] MEDS: ATENOLOL 25 MG TABLET PO SCH (08:10)
[2021-10-04] MEDS: NICOTINE 7 MG/24 HR TDSY TD SCH (08:11)
[2021-10-04] MEDS: guaiFENesin 600 MG TABCR PO SCH ×2 (08:12→20:59)
[2021-10-04] MEDS: SODIUM CHLORIDE 0.65% NA SOLN 45 ML (OCEAN) SCH ×2 (08:13→21:04)
[2021-10-04] MEDS ORDERED: KETOROLAC TROMETHAMINE 15 MG/ML VIAL IV ONE (08:19)
--- NOTE | 2021-10-04 08:21 | Hospitalist Progress Note ---
Date of Service October 04, 2021 Assessment & Plan (1) Acute respiratory failure with hypoxia: (2) Community acquired pneumonia: Plan: Patient reports history of recurrent sinusitis Most recently he was treated with Augmentin (started 5 days ago) Previously on Levaquin in August About 2 days ago, he developed more cough, chest tightness, and difficulty breathing in the ED found hypoxic, currently on 3 L of supplemental O2, satting 91% Chest x-ray showed some pulmonary edema and so he received Lasix in ED CTA negative for PE, however shows right upper lobe pneumonia Troponin negative Procalcitonin negative COVID-19 negative, influenza negative, RSV negative Blood culture pending proBNP normal In the ED received ceftriaxone and azithromycin, and dexamethasone We will continue with ceftriaxone and doxycycline Added guaifenesin, flutter valve Obtained sputum culture - pending results Continue to closely monitor Patient also may have underlying COPD, as he has significant smoking history We will provide nicotine patch 10/04 -patient currently on 2 L of nasal cannula, satting 93% Repeat chest x-ray this morning, shows resolution of pulmonary edema creatinine slightly up, 1.4 this morning, Likely secondary to receiving Lasix and Toradol in the ED yesterday -we will continue to closely monitor Will provide very gentle hydration Hypertension Patient takes atenolol 12.5 mg daily, will continue BP well controlled now Hyperlipidemia History of elevated LDL, managed by diet DVT prophylaxis Lovenox CODE STATUS full Admission and Anticipated Discharge Date Admission Date: October 03, 2021 Subjective Patient seen in follow-up of hypoxia, pneumonia Currently sitting up in bed, no acute distress Says he does not have much appetite, is eating Jell-O No fevers, chills, chest pain, increased shortness of breath, says that cough is little better He does complain of headache, says he has headaches almost all the time, takes Excedrin at home He is using flutter valve on his own Sputum culture pending Review of Systems Review of Systems: All systems reviewed & are unremarkable except as noted in Subjective Physical Exam Physical Exam: Constitutional:L WD/WN, vitals as a jay Eyes: PERRL, EOMI, thomas l, anicteric scler ae ENMT: external ear and n ose normal, oropha rynx normal Neck: supple Respiratory: normal respiratory effort and + coug h Auscultation: + crackles (minimal ) and + rhonchi (d iffuse); no wheeze s Cardiovascular:L Rate/Rhythm:RRR He art Sounds: no mur mur Extremities: no edema Chest (Breasts): Chest: normal insp ection of chest Gastrointestinal ( Abdomen): normal bowel sound s, soft, nontender Musculoskeletal: no cyanosis or clu bbing, extremities motor strength 5/ 5 Head/Neck/Chest : normocephalic, h ead atraumatic and neck supple Skin: no rashes, warm an d dry Neurologic: PERRL, EOMI, no fa ce palsy, no dysar thria, moves extre mities Psychiatric: A+Ox3, euthymic af fect Genitourinary: no CVA tenderness Lymphatic: no lymphedema Results & Data Results & Data ([facility]) Vital Signs (Past 12 Hours) Vital Signs Temp Pulse Pulse Resp BP BP Pulse Ox 10/04/21 07:35 36.7 C 19 140/72 91 10/04/21 04:40 36.7 C 79 18 125/78 93 10/04/21 01:54 36.6 C 74 20 136/83 93 10/04/21 01:51 79 10/04/21 00:45 78 18 137/82 91 10/03/21 23:47 10/03/21 23:46 77 18 124/81 92 10/03/21 23:18 37.0 C 90 21 99/59 L 93 10/03/21 23:00 76 18 124/81 92 10/03/21 22:30 77 20 109/64 94 10/03/21 22:00 74 21 131/68 93 10/03/21 21:40 89 13 92 10/03/21 21:30 91 H 21 118/77 92 10/03/21 21:20 76 21 92 10/03/21 21:10 77 22 92 10/03/21 21:00 84 21 116/69 93 10/03/21 20:50 76 21 93 10/03/21 20:40 77 21 93 10/03/21 20:30 89 19 130/84 94 10/03/21 20:20 93 H 15 92 Pulse Ox 10/04/21 07:35 10/04/21 04:40 10/04/21 01:54 10/04/21 01:51 10/04/21 00:45 10/03/21 23:47 92 10/03/21 23:46 10/03/21 23:18 10/03/21 23:00 10/03/21 22:30 10/03/21 22:00 10/03/21 21:40 10/03/21 21:30 10/03/21 21:20 10/03/21 21:10 10/03/21 21:00 10/03/21 20:50 10/03/21 20:40 10/03/21 20:30 10/03/21 20:20 Laboratory Results 10/04/21 10/04/21 10/03/21 Range/Units 12:16 12:16 Unknown WBC 8.37 (4.8-10.8) K/uL RBC 4.45 L (4.7-6.1) M/uL Hgb 14.0 (14.0-18.0) g/dL Hct 41.6 L (42-52) % MCV 93.5 (80-100) fL MCH 31.5 (25-34) pg MCHC 33.7 (32-36) g/dL RDW Std Deviation 44.0 (36.4-46.3) fL RDW Coeff of Alysa 12.9 (11.5-14.5) % Plt Count 328 (130-400) K/uL MPV 9.9 (7.4-10.4) fL Sodium 132 L (136-145) mmol/L Potassium 3.4 L (3.5-5.1) mmol/L Chloride 97 L (98-107) mmol/L Carbon Dioxide 25 (21-32) mmol/L Anion Gap 10.0 (3-11) BUN 31 H D (7-18) mg/dl Creatinine 1.36 D (0.6-1.4) mg/dl Est Cr Clr Drug Dosing 52.3 ml/min Est GFR ( Amer) 65.5 ml/min Est GFR (Non-Af Amer) 56.6 ml/min BUN/Creatinine Ratio 23.0 H (10-20) Glucose 137 H (70-99) mg/dl Calcium 8.7 (8.5-10.1) mg/dl Phosphorus 3.9 D (2.5-4.9) mg/dl Magnesium 2.0 (1.8-2.4) mg/dl NT-Pro-B Natriuret Pep (0-900) pg/ml Urine Color Yellow Urine Appearance Clear (Clear) Urine pH 5.5 (4.5-7.5) Ur Specific Carrie 1.038 H (1.000-1.030) Urine Protein Negative (Negative) Urine Glucose (UA) Negative (Negative) Urine Ketones Negative (Negative) Urine Blood Trace H (Negative) Urine Nitrite Negative (Negative) Urine Bilirubin Negative (Negative) Urine Urobilinogen Negative (Negative) Ur Leukocyte Esterase Negative (Negative) Urine WBC (Auto) 0 (0-5) /hpf Urine RBC (Auto) 0-4 (0-4) /hpf U Hyaline Cast (Auto) 0 (0-5) /lpf U Epithel Cells (Auto) 0-5 (0-5) /lpf Urine Bacteria (Auto) Negative (Negative) 10/03/21 10/03/21 Range/Units 11:20 11:20 WBC (4.8-10.8) K/uL RBC (4.7-6.1) M/uL Hgb (14.0-18.0) g/dL Hct (42-52) % MCV (80-100) fL MCH (25-34) pg MCHC (32-36) g/dL RDW Std Deviation (36.4-46.3) fL RDW Coeff of Alysa (11.5-14.5) % Plt Count (130-400) K/uL MPV (7.4-10.4) fL Sodium (136-145) mmol/L Potassium (3.5-5.1) mmol/L Chloride (98-107) mmol/L Carbon Dioxide (21-32) mmol/L Anion Gap (3-11) BUN (7-18) mg/dl Creatinine (0.6-1.4) mg/dl Est Cr Clr Drug Dosing ml/min Est GFR ( Amer) ml/min Est GFR (Non-Af Amer) ml/min BUN/Creatinine Ratio (10-20) Glucose (70-99) mg/dl Calcium (8.5-10.1) mg/dl Phosphorus 2.8 (2.5-4.9) mg/dl Magnesium (1.8-2.4) mg/dl NT-Pro-B Natriuret Pep 101 (0-900) pg/ml Urine Color Urine Appearance (Clear) Urine pH (4.5-7.5) Ur Specific Carrie (1.000-1.030) Urine Protein (Negative) Urine Glucose (UA) (Negative) Urine Ketones (Negative) Urine Blood (Negative) Urine Nitrite (Negative) Urine Bilirubin (Negative) Urine Urobilinogen (Negative) Ur Leukocyte Esterase (Negative) Urine WBC (Auto) (0-5) /hpf Urine RBC (Auto) (0-4) /hpf U Hyaline Cast (Auto) (0-5) /lpf U Epithel Cells (Auto) (0-5) /lpf Urine Bacteria (Auto) (Negative) Medications Administered Current Inpatient Medications Acetaminophen (Acetaminophen 325 Mg Tab) 650 mg PO PRN PRN PRN Reason: pain or fever Stop: 11/02/21 15:55 Last Admin: 10/04/21 01:46 Dose: 650 mg Documented by: Atenolol (Atenolol 25 Mg Tablet) 12.5 mg PO QAM [facility] Stop: 11/03/21 08:59 Last Admin: 10/04/21 08:10 Dose: 12.5 mg Documented by: Enoxaparin Sodium (Enoxaparin Inj 40 Mg/0.4 Ml Syr) 40 mg SQ Q24H [facility] Stop: 11/02/21 20:59 Last Admin: 10/03/21 21:38 Dose: 40 mg Documented by: Guaifenesin (Guaifenesin 600 Mg Tabcr) 600 mg PO Q12 [facility] Stop: 11/02/21 20:59 Last Admin: 10/04/21 08:12 Dose: 600 mg Documented by: Doxycycline Hyclate 100 mg/ (Dextrose) 110 mls @ 50 mls/hr IV Q12H [facility] Stop: 10/10/21 17:59 Last Infusion: 10/04/21 08:13 Dose: Infused Documented by: Ceftriaxone Sodium 1,000 mg/ (Dextrose) 50 mls @ 100 mls/hr IV Q24H [facility]; Protocol Stop: 10/10/21 13:29 Ketorolac Tromethamine (Ketorolac Tromethamine 15 Mg/Ml Vial) 15 mg IV NOW ONE Stop: 10/04/21 08:20 Miscellaneous (Remove Nicoderm Patch) 1 ea N/A DAILY@[id number] [facility] Stop: 11/03/21 08:58 Last Admin: 10/04/21 08:13 Dose: 1 ea Documented by: Nicotine (Nicotine 7 Mg/24 Hr Tdsy) 7 mg TD QAM [facility] Stop: 11/03/21 08:59 Last Admin: 10/04/21 08:11 Dose: 7 mg Documented by: Sodium Chloride (Sodium Chloride 0.65% Na Soln 45 Ml ([place])) 1 sprays NA BID [facility] Stop: 11/02/21 20:59 Last Admin: 10/04/21 08:13 Dose: 1 sprays Documented by: (1) Community acquired pneumonia Laterality: right Lung location: upper lobe of lung Qualified Code(s): J18.9 - Pneumonia, unspecified organism
--- NOTE | 2021-10-04 08:34 | XRay Report ---
XR chest 1V portable CLINICAL HISTORY: follow up TECHNIQUE: Single frontal radiograph of the chest was obtained. Comparison: Comparison is made to chest one view 10/03/2021 FINDINGS: No lines and tubes are seen. The cardiomediastinal silhouette is normal. Interval resolution of previ ously noted pulmonary edema. The lungs are clear. No evidence of pleural effusion or pneumothorax. IMPRESSION: No acute chest disease. In particular, previously noted pulmonary edema has resolved. ACT 112: Negative or not required by law. Electronically signed by: Simba Red M.D. 10/04/2021 8:33 AM
--- NOTE | 2021-10-04 11:39 | Electrocardiogram Report ---
Test Reason : Blood Pressure : / mmHG Vent. Rate : 103 BPM Atrial Rate : 103 BPM P-R Int : 150 ms QRS Dur : 094 ms QT Int : 342 ms P-R-T Axes : 080 -48 051 degrees QTc Int : 448 ms Sinus tachycardia Left axis deviation Abnormal ECG When compared with ECG of 24-JUL-2012 07:05, QRS axis Shifted left Confirmed by Sage Llanes ([id number]) on 10/04/2021 11:38:48 AM Referred By: REFERRED SELF Confirmed By:Sage Llanes
[2021-10-04] MEDS ORDERED: IBUPROFEN 200 MG TAB PO PRN (12:01)
[2021-10-04 12:26] LABS: Hematocrit (blood only) 41.6 % (42-52); Mean Corpuscular Hemoglobin 31.5 pg (25-34); Mean Corpuscular Hgb Conc 33.7 g/dL (32-36); Mean Corpuscular Volume 93.5 fL (80-100); Mean Platelet Volume 9.9 fL (7.4-10.4); Platelet Count 328 K/uL (130-400); RDW Coefficient of Variation 12.9 % (11.5-14.5); Red Blood Count 4.45 M/uL (4.7-6.1); White Blood Count 8.37 K/uL (4.8-10.8)
[2021-10-04] MEDS: cefTRIAXone SODIUM 1,000 MG in DEXTROSE 5% 50 ML IV SCH (12:48)
[2021-10-04 12:50] LABS: Calcium 8.7 mg/dl (8.5-10.1); Creatinine Clr Calc Pharmacy 52.3 ml/min; Est GFR (African American) 65.5 ml/min; Est GFR (Non-African American) 56.6 ml/min; Phosphorus 3.9 mg/dl (2.5-4.9); Potassium 3.4 mmol/L (3.5-5.1)
[2021-10-04] MEDS ORDERED: POTASSIUM CHLORIDE CRTAB 20 MEQ TABCR PO STA (12:53)
[2021-10-04] MEDS ORDERED: SODIUM CHLORIDE 0.9% 1000ML 500 ML IV ONE (12:58)
[2021-10-04] MEDS: ENOXAPARIN INJ 40 MG/0.4 ML SYR SQ SCH (21:54)
[2021-10-05] MEDS: DOXYCYCLINE HYCLATE 100 MG in DEXTROSE 5% 100 ML IV SCH ×2 (06:11→17:28)
[2021-10-05] MEDS: ACETAMINOPHEN 325 MG TAB PO PRN (06:15)
[2021-10-05 07:07] LABS: Hematocrit (blood only) 42.1 % (42-52); Hemoglobin 13.9 g/dL (14.0-18.0); Mean Corpuscular Hemoglobin 31.2 pg (25-34); Mean Corpuscular Volume 94.4 fL (80-100); Mean Platelet Volume 9.9 fL (7.4-10.4); Platelet Count 360 K/uL (130-400); RDW Coefficient of Variation 12.9 % (11.5-14.5); RDW Standard Deviation 44.6 fL (36.4-46.3); Red Blood Count 4.46 M/uL (4.7-6.1); White Blood Count 7.53 K/uL (4.8-10.8)
[2021-10-05 07:59] LABS: BUN Creatinine Ratio 24.7 (10-20); Calcium 8.6 mg/dl (8.5-10.1); Creatinine Clr Calc Pharmacy 83.7 ml/min; Est GFR (African American) 108.5 ml/min; Est GFR (Non-African American) 93.6 ml/min; Magnesium 2.2 mg/dl (1.8-2.4); Phosphorus 2.2 mg/dl (2.5-4.9)
[2021-10-05] MEDS ORDERED: KETOROLAC TROMETHAMINE 15 MG/ML VIAL IV PRN (08:58)
--- NOTE | 2021-10-05 08:58 | Hospitalist Progress Note ---
Date of Service October 05, 2021 Assessment & Plan (1) Acute respiratory failure with hypoxia: (2) Community acquired pneumonia: Plan: Patient reports history of recurrent sinusitis Most recently he was treated with Augmentin (started 5 days ago) Previously on Levaquin in August About 2 days ago, he developed more cough, chest tightness, and difficulty breathing in the ED found hypoxic, currently on 3 L of supplemental O2, satting 91% Chest x-ray showed some pulmonary edema and so he received Lasix in ED CTA negative for PE, however shows right upper lobe pneumonia Troponin negative Procalcitonin negative COVID-19 negative, influenza negative, RSV negative Blood culture pending proBNP normal In the ED received ceftriaxone and azithromycin, and dexamethasone We will continue with ceftriaxone and doxycycline Added guaifenesin, flutter valve Obtained sputum culture - pending results Continue to closely monitor Patient also may have underlying COPD, as he has significant smoking history We will provide nicotine patch 10/04 -patient currently on 2 L of nasal cannula, satting in 90s% Repeat chest x-ray this morning, shows resolution of pulmonary edema creatinine slightly up, 1.4 this morning, Likely secondary to receiving Lasix and Toradol in the ED yesterday -we will continue to closely monitor Will provide very gentle hydration Hypertension Patient takes atenolol 12.5 mg daily, will continue BP well controlled now Hyperlipidemia History of elevated LDL, managed by diet DVT prophylaxis Lovenox CODE STATUS full Admission and Anticipated Discharge Date Admission Date: October 03, 2021 Subjective Patient seen in follow-up of hypoxia, pneumonia Currently sitting up in bed, no acute distress, on suppl. O2 NC No fevers, chills, chest pain, increased shortness of breath, says that breathing and cough is better He is using flutter valve on his own Review of Systems Review of Systems: All systems reviewed & are unremarkable except as noted in Subjective Physical Exam Physical Exam: Constitutional:WD/WN, vitals as above Eyes: PERRL, EOMI, normal, anicteric sclerae ENMT: external ear and nose normal, oropharynx normal Neck: supple Respiratory: normal respiratory effort and + cough Auscultation: + crackles (minimal) and + rhonchi (diffuse); no wheezes Cardiovascular:L Rate/Rhythm:RRR Heart Sounds: no murmur Extremities: no edema Chest (Breasts):Chest: normal inspection of chest Gastrointestinal (Abdomen): normal bowel sounds, soft, nontender Musculoskeletal:no cyanosis or clubbing, extremities motor strength 5/5 Head/Neck/Chest: normocephalic, head atraumatic and neck supple Skin: no rashes, warm and dry Neurologic: PERRL, EOMI, no face palsy, no dysarthria, moves extremities Psychiatric: A+Ox3, euthymic affect Genitourinary: no CVA tenderness Lymphatic: no lymphedema Results & Data Results & Data ([facility]) Vital Signs (Past 12 Hours) Vital Signs Temp Pulse Pulse Pulse Resp BP Pulse Ox 10/05/21 08:13 82 10/05/21 07:51 36.5 C 69 18 128/79 90 10/05/21 04:08 36.5 C 72 19 131/76 92 10/04/21 23:30 36.6 C 72 18 121/64 95 10/04/21 22:20 59 L Laboratory Results 10/05/21 10/05/21 10/04/21 Range/Units 06:44 06:44 12:16 WBC 7.53 (4.8-10.8) K/uL RBC 4.46 L (4.7-6.1) M/uL Hgb 13.9 L (14.0-18.0) g/dL Hct 42.1 (42-52) % MCV 94.4 (80-100) fL MCH 31.2 (25-34) pg MCHC 33.0 (32-36) g/dL RDW Std Deviation 44.6 (36.4-46.3) fL RDW Coeff of Alysa 12.9 (11.5-14.5) % Plt Count 360 (130-400) K/uL MPV 9.9 (7.4-10.4) fL Sodium 135 L 132 L (136-145) mmol/L Potassium 4.0 D 3.4 L (3.5-5.1) mmol/L Chloride 105 97 L (98-107) mmol/L Carbon Dioxide 22 25 (21-32) mmol/L Anion Gap 8.0 10.0 (3-11) BUN 22 H 31 H D (7-18) mg/dl Creatinine 0.89 D 1.36 D (0.6-1.4) mg/dl Est Cr Clr Drug Dosing 83.7 52.3 ml/min Est GFR ( Amer) 108.5 65.5 ml/min Est GFR (Non-Af Amer) 93.6 56.6 ml/min BUN/Creatinine Ratio 24.7 H 23.0 H (10-20) Glucose 96 137 H (70-99) mg/dl Calcium 8.6 8.7 (8.5-10.1) mg/dl Phosphorus 2.2 L D 3.9 D (2.5-4.9) mg/dl Magnesium 2.2 2.0 (1.8-2.4) mg/dl 10/04/21 Range/Units 12:16 WBC 8.37 (4.8-10.8) K/uL RBC 4.45 L (4.7-6.1) M/uL Hgb 14.0 (14.0-18.0) g/dL Hct 41.6 L (42-52) % MCV 93.5 (80-100) fL MCH 31.5 (25-34) pg MCHC 33.7 (32-36) g/dL RDW Std Deviation 44.0 (36.4-46.3) fL RDW Coeff of Alysa 12.9 (11.5-14.5) % Plt Count 328 (130-400) K/uL MPV 9.9 (7.4-10.4) fL Sodium (136-145) mmol/L Potassium (3.5-5.1) mmol/L Chloride (98-107) mmol/L Carbon Dioxide (21-32) mmol/L Anion Gap (3-11) BUN (7-18) mg/dl Creatinine (0.6-1.4) mg/dl Est Cr Clr Drug Dosing ml/min Est GFR ( Amer) ml/min Est GFR (Non-Af Amer) ml/min BUN/Creatinine Ratio (10-20) Glucose (70-99) mg/dl Calcium (8.5-10.1) mg/dl Phosphorus (2.5-4.9) mg/dl Magnesium (1.8-2.4) mg/dl Medications Administered Current Inpatient Medications Acetaminophen (Acetaminophen 325 Mg Tab) 650 mg PO PRN PRN PRN Reason: pain or fever Stop: 11/02/21 15:55 Last Admin: 10/05/21 06:15 Dose: 650 mg Documented by: Atenolol (Atenolol 25 Mg Tablet) 12.5 mg PO QAM [facility] Stop: 11/03/21 08:59 Last Admin: 10/04/21 08:10 Dose: 12.5 mg Documented by: Enoxaparin Sodium (Enoxaparin Inj 40 Mg/0.4 Ml Syr) 40 mg SQ Q24H [facility] Stop: 11/02/21 20:59 Last Admin: 10/04/21 21:54 Dose: 40 mg Documented by: Guaifenesin (Guaifenesin 600 Mg Tabcr) 600 mg PO Q12 [facility] Stop: 11/02/21 20:59 Last Admin: 10/04/21 20:59 Dose: 600 mg Documented by: Doxycycline Hyclate 100 mg/ (Dextrose) 110 mls @ 50 mls/hr IV Q12H [facility] Stop: 10/10/21 17:59 Last Admin: 10/05/21 06:11 Dose: 50 mls/hr Documented by: Ceftriaxone Sodium 1,000 mg/ (Dextrose) 50 mls @ 100 mls/hr IV Q24H [facility]; Pr otocol Stop: 10/10/21 13:29 Last Infusion: 10/04/21 13:26 Dose: Infused Documented by: Ibuprofen (Ibuprofen 200 Mg Tab) 200 mg PO Q6H PRN PRN Reason: Headache Stop: 11/03/21 12:00 Last Admin: 10/04/21 18:07 Dose: 200 mg Documented by: Miscellaneous (Remove Nicoderm Patch) 1 ea N/A DAILY@0859 [facility] Stop: 11/03/21 08:58 Last Admin: 10/04/21 08:13 Dose: 1 ea Documented by: Nicotine (Nicotine 7 Mg/24 Hr Tdsy) 7 mg TD QAM [facility] Stop: 11/03/21 08:59 Last Admin: 10/04/21 08:11 Dose: 7 mg Documented by: Sodium Chloride (Sodium Chloride 0.65% Na Soln 45 Ml ([place])) 1 sprays NA BID [facility] Stop: 11/02/21 20:59 Last Admin: 10/04/21 21:04 Dose: 1 sprays Documented by: (1) Community acquired pneumonia Laterality: right Lung location: upper lobe of lung Qualified Code(s): J18.9 - Pneumonia, unspecified organism
[2021-10-05] MEDS: SODIUM CHLORIDE 0.65% NA SOLN 45 ML (OCEAN) SCH ×2 (09:35→21:27)
[2021-10-05] MEDS: ATENOLOL 25 MG TABLET PO SCH (09:35)
[2021-10-05] MEDS: traMADol HCL 50 MG TABLET PO PRN ×2 (09:40→13:48)
[2021-10-05] MEDS: guaiFENesin 600 MG TABCR PO SCH ×2 (10:42→21:26)
[2021-10-05] MEDS: NICOTINE 7 MG/24 HR TDSY TD SCH (10:42)
[2021-10-05] MEDS: cefTRIAXone SODIUM 1,000 MG in DEXTROSE 5% 50 ML IV SCH (13:12)
[2021-10-05] MEDS: ENOXAPARIN INJ 40 MG/0.4 ML SYR SQ SCH (21:26)
[2021-10-06] MEDS: DOXYCYCLINE HYCLATE 100 MG in DEXTROSE 5% 100 ML IV SCH ×2 (06:17→17:22)
[2021-10-06 06:18] LABS: Hematocrit (blood only) 43.9 % (42-52); Hemoglobin 14.5 g/dL (14.0-18.0); Mean Corpuscular Hemoglobin 31.5 pg (25-34); Mean Corpuscular Volume 95.2 fL (80-100); Mean Platelet Volume 10.2 fL (7.4-10.4); Platelet Count 397 K/uL (130-400); RDW Coefficient of Variation 12.9 % (11.5-14.5); RDW Standard Deviation 44.7 fL (36.4-46.3); Red Blood Count 4.61 M/uL (4.7-6.1); White Blood Count 6.84 K/uL (4.8-10.8)
[2021-10-06 07:00] LABS: BUN Creatinine Ratio 18.9 (10-20); Calcium 9.1 mg/dl (8.5-10.1); Est GFR (African American) 92.8 ml/min; Est GFR (Non-African American) 80.1 ml/min; Magnesium 2.4 mg/dl (1.8-2.4); Potassium 4.1 mmol/L (3.5-5.1)
[2021-10-06] MEDS: guaiFENesin 600 MG TABCR PO SCH ×2 (07:49→20:30)
[2021-10-06] MEDS: ADVANCED PROBIOTIC 1250 MG CAPSULE PO SCH (07:49)
[2021-10-06] MEDS: ATENOLOL 25 MG TABLET PO SCH (08:55)
[2021-10-06] MEDS: NICOTINE 7 MG/24 HR TDSY TD SCH (08:56)
[2021-10-06] MEDS: SODIUM CHLORIDE 0.65% NA SOLN 45 ML (OCEAN) SCH ×2 (08:56→20:30)
[2021-10-06] MEDS: cefTRIAXone SODIUM 1,000 MG in DEXTROSE 5% 50 ML IV SCH (14:53)
--- NOTE | 2021-10-06 16:46 | Hospitalist Progress Note ---
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 CTA negative for PE, however shows right upper lobe pneumonia Troponin negative Procalcitonin negative COVID-19 negative, influenza negative, RSV negative Blood culture negative to date. proBNP normal In the ED received ceftriaxone and azithromycin, and dexamethasone Continued on ceftriaxone and doxycycline on admission to hospital Mucinex, flutter valve. Obtained sputum culture - strep pneumo+ significant smoking history-encouraged to quit We will provide nicotine patch Hypertension Patient takes atenolol 12.5 mg daily, will continue BP at goal DVT prophylaxis Lovenox CODE STATUS full Dipso- to home in 1-2 days. DO [facility] Hospital[facility] (2) Acute pulmonary edema: Plan: resolved wtih one dose of Lasix in the ER. (3) Smoker: (4) Hypertension: Admission and Anticipated Discharge Date Admission Date: October 03, 2021 Subjective 61 yo M smoker presents with pneumonia. Today he is doing better since admission Reports min cough Resigned to quit smoking We discussed options for help with this at discharge Denies SOB Still requiring small amount of oxygen. Review of Systems Review of Systems: All systems were reviewed and negative except as indicated above. Physical Exam Physical Exam: CONSTITUTIONAL: WNWD, vitals as above, generally well- appearing EYES: normal conjunctivae, no scleral icterus ENT: external ear and nose normal, MMM NECK: trachea midline RESPIRATORY: clear to auscultation bilaterally, no crackles, rales or wheezes, normal respiratory effort CARDIOVASCULAR: regular rate and rhythm, S1 and 2 heard without murmurs, gallops or rubs, no JVD, no peripheral edema CHEST: inspection of chest was normal GASTROINTESTINAL: soft, nontender, ND, no guarding MUSCULOSKELETAL: strength 5/5 throughout, head is normocephalic and atraumatic SKIN: warm and dry NEUROLOGIC: CN 2-12 grossly intact, normal cognition, normal speech, no tremor, no gross focal deficits. PSYCHIATRIC: alert cooperative and oriented to person, place and time. Euthymic mood, makes good eye contact, language grossly intact, recent and re mote memory grossly intact. Results & Data Results & Data ([facility]) Vital Signs (Past 12 Hours) Vital Signs Temp Pulse Pulse Resp BP Pulse Ox 10/06/21 15:10 76 10/06/21 15:04 37.0 C 72 16 121/75 94 10/06/21 11:00 37.3 C 71 16 134/79 92 10/06/21 08:00 90 10/06/21 07:42 36.8 C 68 20 117/71 90 10/06/21 07:19 66 Laboratory Results Short CBC 10/06/21 Range/Units 05:25 WBC 6.84 (4.8-10.8) K/uL Hgb 14.5 (14.0-18.0) g/dL Hct 43.9 (42-52) % Plt Count 397 (130-400) K/uL BMP 10/06/21 05:25 Sodium 136 Potassium 4.1 Chloride 106 Carbon Dioxide 22 BUN 19 H Creatinine 1.02 Glucose 87 Calcium 9.1 Medications Administered Current Inpatient Medications Acetaminophen (Acetaminophen 325 Mg Tab) 650 mg PO PRN PRN PRN Reason: pain or fever Stop: 11/02/21 15:55 Last Admin: 10/05/21 06:15 Dose: 650 mg Documented by: Atenolol (Atenolol 25 Mg Tablet) 12.5 mg PO QAM [facility] Stop: 11/03/21 08:59 Last Admin: 10/06/21 08:55 Dose: 12.5 mg Documented by: Doxycycline Hyclate (Doxycycline Hyclate 100 Mg Cap) 100 mg PO Q12H [facility]; Protocol Stop: 10/10/21 17:59 Enoxaparin Sodium (Enoxaparin Inj 40 Mg/0.4 Ml Syr) [address] Stop: 11/02/21 20:59 Last Admin: 10/05/21 21:26 Dose: 40 mg Documented by: Guaifenesin (Guaifenesin 600 Mg Tabcr) [address] Stop: 11/02/21 20:59 Last Admin: 10/06/21 07:49 Dose: 600 mg Documented by: Doxycycline Hyclate 100 mg/ (Dextrose) 110 mls @ 50 mls/hr IV Q12H [facility] Stop: 10/06/21 23:59 Last Infusion: 10/06/21 08:24 Dose: Infused Documented by: Ceftriaxone Sodium 1,000 mg/ (Dextrose) 50 mls @ 100 mls/hr IV Q24H [facility]; Protocol Stop: 10/10/21 13:29 Last Infusion: 10/06/21 15:29 Dose: Infused Documented by: Ibuprofen (Ibuprofen 200 Mg Tab) 200 mg PO Q6H PRN PRN Reason: Headache Stop: 11/03/21 12:00 Last Admin: 10/04/21 18:07 Dose: 200 mg Documented by: Ketorolac Tromethamine (Ketorolac Tromethamine 15 Mg/Ml Vial) 15 mg IV Q6H PRN PRN Reason: Pain/ severe headache Stop: 10/10/21 08:57 Lactobacillus Acidoph/Casei/Rhamnos (Advanced Probiotic 1250 Mg Capsule) 2 cap PO DAILY [facility] Stop: 11/05/21 08:59 Last Admin: 10/06/21 07:49 Dose: 2 cap Documented by: Miscellaneous (Remove Nicoderm Patch) 1 ea N/A DAILY@0859 [facility] Stop: 11/03/21 08:58 Last Admin: 10/06/21 08:56 Dose: 1 ea Documented by: Nicotine (Nicotine 7 Mg/24 Hr Tdsy) 7 mg TD QAM [facility] Stop: 11/03/21 08:59 Last Admin: 10/06/21 08:56 Dose: 7 mg Documented by: Sodium Chloride (Sodium Chloride 0.65% Na Soln 45 Ml ([place])) 1 sprays NA BID [facility] Stop: 11/02/21 20:59 Last Admin: 10/06/21 08:56 Dose: 1 sprays Documented by: Tramadol HCl (Tramadol Hcl 50 Mg Tablet) 25 mg PO Q4H PRN PRN Reason: Pain/ severe headache Stop: 11/04/21 08:58 Last Admin: 10/05/21 13:48 Dose: 25 mg Documented by: (1) Community acquired pneumonia Laterality: right Lung location: upper lobe of lung Qualified Code(s): J18.9 - Pneumonia, unspecified organism
[2021-10-06] MEDS: ENOXAPARIN INJ 40 MG/0.4 ML SYR SQ SCH (20:30)
[2021-10-06] MEDS: DOXYCYCLINE HYCLATE 100 MG CAP PO SCH (20:30)
[2021-10-07 06:03] LABS: Hematocrit (blood only) 43.4 % (42-52); Hemoglobin 14.4 g/dL (14.0-18.0); Mean Corpuscular Hemoglobin 31.3 pg (25-34); Mean Corpuscular Hgb Conc 33.2 g/dL (32-36); Mean Corpuscular Volume 94.3 fL (80-100); Mean Platelet Volume 10.1 fL (7.4-10.4); Platelet Count 420 K/uL (130-400); RDW Coefficient of Variation 12.8 % (11.5-14.5); RDW Standard Deviation 44.1 fL (36.4-46.3); White Blood Count 7.58 K/uL (4.8-10.8)
[2021-10-07 06:33] LABS: BUN Creatinine Ratio 21.4 (10-20); Creatinine Clr Calc Pharmacy 77.8 ml/min; Est GFR (African American) 98.6 ml/min; Est GFR (Non-African American) 85.1 ml/min; Potassium 4.1 mmol/L (3.5-5.1)
[2021-10-07] MEDS ORDERED: DOXYCYCLINE HYCLATE 100 MG CAP PO SCH (08:00)
[2021-10-07] MEDS ORDERED: AMOXICILLIN/CLAVULANATE 875 MG TAB PO SCH (08:00)
[2021-10-07] MEDS: ADVANCED PROBIOTIC 1250 MG CAPSULE PO SCH (08:06)
[2021-10-07] MEDS: guaiFENesin 600 MG TABCR PO SCH (08:06)
[2021-10-07] MEDS: NICOTINE 7 MG/24 HR TDSY TD SCH (08:06)
[2021-10-07] MEDS: ATENOLOL 25 MG TABLET PO SCH (08:06)
[2021-10-07] MEDS: DOXYCYCLINE HYCLATE 100 MG CAP PO SCH (08:06)
[2021-10-07] MEDS: SODIUM CHLORIDE 0.65% NA SOLN 45 ML (OCEAN) SCH (08:07)
[2021-10-07] MEDS ORDERED: PNEUMOCOCCAL POLYSACCHARIDES 25 MCG/0.5 ML VIAL/SYR IM ONE (12:15)
--- NOTE | 2021-10-07 14:26 | Discharge Summary ---
Date of Service October 07, 2021 Admission HPI Per Admitting Provider 61-year-old male, with history of recurrent sinusitis, hyperlipidemia, hypertension, who presents with increased cough, difficulty breathing, and found hypoxic in the ED. Patient was seen by his primary care provider about a week ago, at that time he was prescribed Augmentin for his recurrent sinusitis. Patient reports having issues with sinuses for several years, previously he was treated in July and August with antibiotics as well, per records he was on Levaquin in August. Says he had significant nasal drainage, green-colored, and therefore was seen by his PCP on Tuesday. He thought he was getting better on Augmentin however yesterday he developed a lot of chest tightness, more cough and sputum production with cough. Denies significant fevers or chills. Also denies abdominal pain nausea or vomiting. He has chronic headache, for which he takes Excedrin. For hypertension he takes 12.5 mg of atenolol daily. 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 He is also a d aily smoker, about a pack a day, for past 35 years. Says he smoked last time yesterday. In the ED he was found hypoxic, and currently is on 3 L of nasal cannula, satting 91%. He is able to talk in full sentences, and reports that he is feeling better now. In the ED he received ceftriaxone, azithromycin, dexamethasone, and also IV Lasix as chest x-ray suggested some pulmonary edema. CTA negative for PE, however concerning for right upper lobe pneumonia. Admission Exam Per Admitting Provider Constitutional: WD/WN, vitals as above Eyes: PERRL, conjunctivae normal, anicteric sclerae ENMT: external ear and nose normal, oropharynx normal Neck: trachea midline, no thyromegaly Respiratory: normal respiratory effort and + cough Auscultation: + crackles (minimal) and + rhonchi (diffuse); no wheezes Cardiovascular: Rate/Rhythm: + tachycardic (low 100s) Heart Sounds: no murmur Extremities: no edema Chest (Breasts): Chest: normal inspection of chest Gastrointestinal (Abdomen): normal bowel sounds, soft, nontender, no hepatosplenomegaly Musculoskeletal: no cyanosis or clubbing, extremities motor strength 5/5 Head/Neck/Chest: normocephalic, head atraumatic and neck supple Skin: no rashes, warm and dry Neurologic: PERRL, EOMI, accommodation nl, no face palsy, no dysarthria Psychiatric: A+Ox3, euthymic affect Genitourinary: no CVA tenderness Lymphatic: no lymphedema Principal Diagnosis pneumonia smoker Discharge Exam CONSTITUTIONAL: WNWD, vitals as above, generally well-appearing EYES: normal conjunctivae, no scleral icterus ENT: external ear and nose normal, MMM NECK: trachea midline RESPIRATORY: clear to auscultation bilaterally, no crackles, rales or wheezes, normal respiratory effort CARDIOVASCULAR: regular rate and rhythm, S1 and 2 heard without murmurs, gallops or rubs, no JVD, no peripheral edema CHEST: inspection of chest was normal GASTROINTESTINAL: soft, nontender, ND, no guarding MUSCULOSKELETAL: strength 5/5 throughout, head is normocephalic and atraumatic SKIN: warm and dry NEUROLOGIC: CN 2-12 grossly intact, normal cognition, normal speech, no tremor, no gross focal deficits. PSYCHIATRIC: alert cooperative and oriented to person, place and time. Euthymic mood, makes good eye contact, language grossly intact, recent and remote memory grossly intact. Discharge Data Allergies Allergy/AdvReac Type Severity Reaction Status Date / Time No Known Allergies Allergy Unknown NONE Verified 08/19/09 04:24 Consultations 10/03/21 13:27 ED Decision to Admit Stat Ordered Studies Laboratory Results WBC 7.58 K/uL (4.8-10.8) 10/07/21 05:25 RBC 4.60 M/uL (4.7-6.1) L 10/07/21 05:25 Hgb 14.4 g/dL (14.0-18.0) 10/07/21 05:25 Hct 43.4 % (42-52) 10/07/21 05:25 MCV 94.3 fL (80-100) 10/07/21 05:25 MCH 31.3 pg (25-34) 10/07/21 05:25 MCHC 33.2 g/dL (32-36) 10/07/21 05:25 RDW Std Deviation 44.1 fL (36.4-46.3) 10/07/21 05:25 RDW Coeff of Alysa 12.8 % (11.5-14.5) 10/07/21 05:25 Plt Count 420 K/uL (130-400) H 10/07/21 05:25 MPV 10.1 fL (7.4-10.4) 10/07/21 05:25 Immature Gran % (Auto) 0.1 % 10/03/21 11:20 Neut % (Auto) 74.2 % 10/03/21 11:20 Lymph % (Auto) 11.4 % 10/03/21 11:20 Bonner % (Auto) 13.9 % 10/03/21 11:20 Eos % (Auto) 0.0 % 10/03/21 11:20 Baso % (Auto) 0.4 % 10/03/21 11:20 Neut # (Auto) 7.65 K/uL (1.4-6.5) H 10/03/21 11:20 Lymph # (Auto) 1.18 K/uL (1.2-3.4) L 10/03/21 11:20 Bonner # (Auto) 1.43 K/uL (0.11-0.59) H 10/03/21 11:20 Eos # (Auto) 0.00 K/uL (0-0.5) 10/03/21 11:20 Baso # (Auto) 0.04 K/uL (0-0.2) 10/03/21 11:20 Immature Gran # (Auto) 0.01 K/uL (0.00-0.02) 10/03/21 11:20 PT 10.6 Seconds (9.0-12.0) 10/03/21 11:20 INR 1.0 (0.9-1.1) 10/03/21 11:20 APTT 30.8 Seconds (21.0-31.0) 10/03/21 11:20 PTT Ratio 1.2 10/03/21 11:20 VBG pH 7.41 (7.36-7.41) 10/03/21 11:20 VBG pCO2 42 mmHg (38-50) 10/03/21 11:20 VBG pO2 26 mmHg 10/03/21 11:20 VBG HCO3 26 mmol/L 10/03/21 11:20 VBG O2 Saturation < 60.0 % 10/03/21 11:20 VBG Base Excess 1.4 mEq/L 10/03/21 11:20 Barometric Pressure 719.8 mm/Hg 10/03/21 11:20 Sodium 137 mmol/L (136-145) 10/07/21 05:25 Potassium 4.1 mmol/L (3.5-5.1) 10/07/21 05:25 Chloride 109 mmol/L (98-107) H 10/07/21 05:25 Carbon Dioxide 22 mmol/L (21-32) 10/07/21 05:25 Anion Gap 6.0 (3-11) 10/07/21 05:25 BUN 21 mg/dl (7-18) H 10/07/21 05:25 Creatinine 0.97 mg/dl (0.6-1.4) 10/07/21 05:25 Est Cr Clr Drug Dosing 77.8 ml/min 10/07/21 05:25 Est GFR ( Amer) 98.6 ml/min 10/07/21 05:25 Est GFR (Non-Af Amer) 85.1 ml/min 10/07/21 05:25 BUN/Creatinine Ratio 21.4 (10-20) H 10/07/21 05:25 Glucose 96 mg/dl (70-99) 10/07/21 05:25 Lactate 0.9 mmol/L (0.4-2.0) 10/03/21 11:20 Calcium 9.0 mg/dl (8.5-10.1) 10/07/21 05:25 Phosphorus 2.2 mg/dl (2.5-4.9) L D 10/05/21 06:44 Magnesium 2.4 mg/dl (1.8-2.4) 10/06/21 05:25 Total Bilirubin 0.3 mg/dl (0.2-1) 10/03/21 11:20 AST 13 U/L (15-37) L 10/03/21 11:20 ALT 14 (12-78) 10/03/21 11:20 Alkaline Phosphatase 96 U/L (45-117) 10/03/21 11:20 Troponin I < 0.015 ng/ml (0-0.045) 10/03/21 11:20 NT-Pro-B Natriuret Pep 101 pg/ml (0-900) 10/03/21 11:20 Total Protein 8.2 gm/dl (6.4-8.2) 10/03/21 11:20 Albumin 3.9 gm/dl (3.4-5.0) 10/03/21 11:20 Globulin 4.3 gm/dl (2.5-4.0) H 10/03/21 11:20 Albumin/Globulin Ratio 0.9 (0.9-2) 10/03/21 11:20 Procalcitonin 0.06 ng/ml (0-0.5) 10/03/21 11:20 Urine Color Yellow 10/03/21 Unknown Urine Appearance Clear (Clear) 10/03/21 Unknown Urine pH 5.5 (4.5-7.5) 10/03/21 Unknown Ur Specific Cheriton 1.038 (1.000-1.030) H 10/03/21 Unknown Urine Protein Negative (Negative) 10/03/21 Unknown Urine Glucose (UA) Negative (Negative) 10/03/21 Unknown Urine Ketones Negative (Negative) 10/03/21 Unknown Urine Blood Trace (Negative) H 10/03/21 Unknown Urine Nitrite Negative (Negative) 10/03/21 Unknown Urine Bilirubin Negative (Negative) 10/03/21 Unknown Urine Urobilinogen Negative (Negative) 10/03/21 Unknown Ur Leukocyte Esterase Negative (Negative) 10/03/21 Unknown Urine WBC (Auto) 0 /hpf (0-5) 10/03/21 Unknown Urine RBC (Auto) 0-4 /hpf (0-4) 10/03/21 Unknown U Hyaline Cast (Auto) 0 /lpf (0-5) 10/03/21 Unknown U Epithel Cells (Auto) 0-5 /lpf (0-5) 10/03/21 Unknown Urine Bacteria (Auto) Negative (Negative) 10/03/21 Unknown SARS-CoV-2 (PCR) NEGATIVE (Negative) 10/03/21 10:33 Influenza Type A (PCR) Negative (Neg) 10/03/21 10:33 Influenza Type B (PCR) Negative (Neg) 10/03/21 10:33 RSV (RT-PCR) Negative (Neg) 10/03/21 10:33 Impressions Chest CTA 10/03/21 10:52 CT angio chest PE protocol CLINICAL HISTORY: ro PE dyspnea, cough TECHNIQUE: Multidetector row helical CT of the chest was performed. Coronal and sagittal reformations were obtained. Coronal and sagittal MIPS were obtained from the axial data set and were submitted for review. Automated dose lowering techniques and/or adjustment according to patient size were utilized for this exam. Comparison: None available at the time of this dictation. FINDINGS: Lungs and pleura: Tree in bud nodularity is seen most prominent in the right perihilar region. Heart and pericardium: Heart size is normal. No pericardial effusion. Vessels: No evidence of pulmonary embolism. Mediastinum and camelia: Subcentimeter lymph nodes are seen. Chest wall and lower neck: Unremarkable. Abdomen: A hepatic cyst is seen. Bones: Degenerative changes in the thoracic spine. IMPRESSION: 1. No evidence of pulmonary embolism. 2. Tree in bud nodularity most prominent in the right upper lobe may represent infectious/inflammatory etiology. ACT 112: Negative or not required by law. Electronically signed by: Simba Red M.D. 10/03/2021 12:59 PM Chest X-Ray 10/04/21 08:00 XR chest 1V portable CLINICAL HISTORY: follow up TECHNIQUE: Single frontal radiograph of the chest was obtained. Comparison: Comparison is made to chest one view 10/03/2021 FINDINGS: No lines and tubes are seen. The cardiomediastinal silhouette is normal. Interval resolution of previously noted pulmonary edema. The lungs are clear. No evidence of pleural effusion or pneumothorax. IMPRESSION: No acute chest disease. In particular, previously noted pulmonary edema has resolved. ACT 112: Negative or not required by law. Electronically signed by: Simba Red M.D. 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 CTA negative for PE, however shows right upper lobe pneumonia Troponin negative Procalcitonin negative COVID-19 negative, influenza negative, RSV negative Blood culture negative to date. proBNP normal In the ED received ceftriaxone and azithromycin, and dexamethasone Continued on ceftriaxone and doxycycline on admission to hospital Mucinex, flutter valve. Obtained sputum culture - strep pneumo+ significant smoking history-encouraged to quit nicotine patches provided at discharge. 2 step performed prior to discharge revealing complete resolution of hypoxia. Discharged in stable condition with close PCP followup Repeat CXR in 4 weeks to ensure complete resolution of pneumonia. (2) Acute pulmonary edema: resolved wtih one dose of Lasix in the ER. (3) Smoker: (4) Hypertension: Total Time Total Time Spent Total Time Spent (In Minutes): 60 Discharge Plan Discharge Items Patient Disposition: Home - Self-Care Reason For Visit: pna, hypoxia Discharge Diagnosis: pneumonia Condition on Discharge: Good Activity: Resume your previous activity Non-emergency contact: Primary Care Provider Call non-emergency contact if: you have any medication questions, your symptoms worsen, your pain is not controlled, your pain is worsening, your pain is concerning for you and you have a fever Follow-up/Referrals: Nina Mendez MD [Primary Care Provider] - (Dr Mendez's office is aware of your discharge and will call you with an appointment. ) Diet: Regular Addtl Attending Provider Instructions: Please take all medications as instructed on discharge list below. It is recommended that you follow-up with your primary care doctor within 1 to 2 weeks of discharge from the hospital. At this time they may want to order a chest x-ray to repeat in 4 weeks and ensure complete resolution of your pneumonia. Additionally this follow-up visit will be important to continue your journey on quitting smoking. You have been provided nicotine patches at discharge which should be used once daily. You may need to step up or step down in dosage depending on your response to therapy. You have been provided with a pneumonia vaccine to help prevent you from developing common strains of pneumonia. This was provided to you on day of discharge per CDC guidelines. It was a pleasure taking care of you! Please call if you have any questions or problems. You can reach a [facility] hospitalist on duty at [facility] 24 hours a day by calling [phone]. Take care of yourself. Dalila Terrell DO [facility] Hospitalist Pending Studies at Discharge: No Stand-Alone Forms: My [facility], Smoking Cessation Medications and DC Order Prescriptions: New amoxicillin-pot clavulanate [Augmentin] 875-125 mg Tablet 1 tab PO BIDM Qty: 6 RF: 0 doxycycline hyclate 100 mg Capsule 100 mg PO Q12H Qty: 6 RF: 0 nicotine [Nicoderm CQ] 21 mg/24 hr patch 24 hour 1 patch transdermal DAILY Qty: 14 RF: 0 Continued atenolol 25 mg tablet 12.5 mg PO DAILY RF: 0 Discontinued amoxicillin-pot clavulanate 875-125 mg tablet 1 tab PO DAILY RF: 0 Discharge Orders: Discharge Order (Routine); Ordered 10/07/21 Ordered By: Dalila Terrell Admission Data Admit Date/Time: 10/03/21 14:01 Attending Provider: Dalila Terrell Admit Provider: Fabian Benoit Primary Care Provider: Nina Mendez Other Providers: Fabian Benoit
== END 2021-10-07 15:26 | disposition home or self-care (01) | DRG 193 ==
LOC: ED 10:27 → SUATTDRO 14:01 → EDINP 14:01 → 2S 18:34 → 2N 10-05 09:46